=== PATIENT | female | born 1990 | race Asian ===

== ENCOUNTER 2024-02-06 05:44 | Emergency (ER) | payer BC ==
[~2024-02-06] VITALS: Ht 147.3 cm; Wt 58.0 kg
[2024-02-06 05:58] VITALS: BP 126/62; O2SAT 100
[2024-02-06] MEDS ORDERED: OFLO5DRO4 RIGHT EAR (06:26)
[2024-02-06 06:48] VITALS: PULSE 87; RESP 16; TEMP 36.94740; O2SAT 100
== END 2024-02-06 06:49 | disposition home or self-care (01) ==
LOC: ER 05:44
DX: H60.501 Unspecified acute noninfective otitis externa, right ear (principal); J45.909 Unspecified asthma, uncomplicated
CPT/HCPCS: 99283

== ENCOUNTER → 2024-03-03 | Outpatient (CLI) | payer BC ==
[~2024-03-03] MED LIST: OFLO5DRO4 RIGHT EAR
[2024-03-03 08:11] LABS: CARBON DIOXIDE 25 mEq/L (21-32); CHLORIDE 106 mEq/L (98-107); POTASSIUM 3.7 mEq/L (3.5-5.1); SODIUM 138 mEq/L (136-145)
[2024-03-03 08:12] LABS: CALCIUM 8.6 mg/dL (8.7-10.4)
[2024-03-03 08:13] LABS: BASOPHILS % 0.3 % (0.0-2.0); EOSINOPHILS % 1.2 % (0.0-5.0); HEMATOCRIT. 40.2 % (36.0-48.0); HEMOGLOBIN. 13.9 g/dL (12.0-16.0); LYMPHOCYTES % 17.3 % (20.0-50.0); MEAN CORPUSCULAR HEMOGLOBIN 31.3 pg (28.0-32.0); MEAN CORPUSCULAR HGB CONC 34.6 g/dL (31.0-37.0); MEAN CORPUSCULAR VOLUME 90.5 fL (81.0-99.0); MEAN PLATELET VOLUME 7.4 fl (7.4-10.4); MONOCYTES % 5.2 % (2.0-8.0); PLATELET 337 x1000/uL (130-400); RED BLOOD CELL COUNT 4.45 mill/uL (4.2-5.4); RED CELL DISTRIBUTION WIDTH 12.4 % (11.6-14.6); WHITE BLOOD COUNT 8.2 x1000/uL (4.5-11.0)
[2024-03-03 08:16] LABS: CREATININE 0.7 mg/dL (0.6-1.0); GLUCOSE 99 mg/dL (70-105); URIC ACID 5.6 mg/dL (3.1-7.8)
[2024-03-03 08:17] LABS: TRIGLYCERIDE 67 mg/dL (0-150); UREA NITROGEN BLOOD 6 mg/dL (9-23)
[2024-03-03 08:18] LABS: ALANINE AMINOTRANSFERASE 25 IU/L (10-49); ALBUMIN 4.5 g/dL (3.2-4.8); ASPARTATE AMINOTRANSFERASE 22 IU/L (<34); LDL CHOLESTEROL 162 mg/dL (5-100)
[2024-03-03 08:19] LABS: BILIRUBIN TOTAL 0.6 mg/dL (0.1-1.0); CHOLESTEROL 204 mg/dL (<200); HDL CHOLESTEROL 48 mg/dL (>65); PROTEIN TOTAL 7.5 g/dL (6.0-8.3)
== END | disposition home or self-care (01) ==
LOC: LAB 07:42
PROVIDERS: ATTEND Internal Medicine
DX: Z00.00 Encounter for general adult medical examination without abnormal findings (principal)
CPT/HCPCS: 36415; 80053; 80061; 83036; 84443; 84550; 85025